=== PATIENT | female | born 1975 | race Hispanic/Latino ===

== ENCOUNTER 2019-05-09 15:55 | Inpatient (IN) | payer SELFPAY ==
[2019-05-09] MEDS ORDERED: Ibuprofen 200 MG TAB ONE (16:06)
--- NOTE | 2019-05-09 16:22 | RAD ---
Frontal and lateral imaging of the right tibia/fibula: 05/09/2019 COMPARISON: None HISTORY: Fall, trauma, pain FINDINGS: There is a comminuted obliquely oriented fracture of the distal right tibial shaft with cecelia roximately 6 mm of medial displacement and 6 mm of anterior displacement. There is a comminuted fracture with moderate displacement at the base of the fibular head as well. IMPRESSION: Fracture deformities of the proximal right fibula in the distal right tibia.
[2019-05-09] MEDS ORDERED: Morphine 4 MG/ML VIAL ONE (17:28)
[2019-05-09] MEDS ORDERED: Morphine 2 MG/ML SYRINGE ONE ×2 (17:29→17:42)
[2019-05-09 17:39] LABS: #Lymphocytes 1.3 thou/uL (1.20-3.40); #Monocytes 0.5 thou/uL (0.11-0.59); #Neutrophils 11.5 thou/uL (1.40-6.50); %Basophils 0.3 % (0.0-1.0); %Eosinophils 0.2 % (0.0-10.0); %Monocytes 3.5 % (0.0-10.0); Hemoglobin 14.9 g/dL (12.0-16.0); Mean Corpuscular HGB CONC 35.5 g/dL (32.0-36.0); Mean Corpuscular Hemoglobin 32.6 pg (27.0-31.0); Mean Corpuscular Volume 91.8 fL (78.0-98.0); Mean Platelet Volume 6.9 fL (7.4-10.4); Platelet Count 264 thou/uL (130-400); RBC Distribution Width 11.5 % (11.5-14.5); Red Blood Cell (RBC) Count 4.58 mill/uL (4.20-5.40); White Blood Cell (WBC) Count 13.3 thou/uL (4.8-10.8)
[2019-05-09] MEDS ORDERED: Promethazine HCl 25 MG/ML VIAL ONE (17:42)
[2019-05-09 18:01] LABS: ALT (SGPT) 36 U/L (8-55); AST (SGOT) 27 U/L (5-34); Albumin 4.6 g/dL (3.5-5.0); Alkaline Phosphatase 75 U/L (40-110); Anion Gap 14 mmol/L (10-20); BUN (Urea Nitrogen) 22 mg/dL (7.0-18.7); Bilirubin, Total 1.4 mg/dL (0.2-1.2); Calc. Creatinine Clearance 0 mL/min (70-130); Calcium 9.8 mg/dL (7.8-10.44); Carbon Dioxide 25 mmol/L (22-29); Chloride 104 mmol/L (98-107); Estimated GFR-MDRD 59; Globulin 3.7 g/dL (2.4-3.5); Glucose 121 mg/dL (70-105); Protein, Total 8.3 g/dL (6.0-8.3); Sodium 139 mmol/L (136-145)
[2019-05-09] MEDS ORDERED: Ondansetron PF 4 MG/2 ML Vial IVP PRN (18:48)
[2019-05-09] MEDS ORDERED: hydrALAZINE 20 MG/ML VIAL SLOW IVP PRN (18:48)
[2019-05-09] MEDS ORDERED: Dextrose 50% Abboject 50 ML SYRINGE SLOW IVP PRN (18:48)
[2019-05-09] MEDS ORDERED: Ondansetron ODT 4 MG TAB PO PRN (18:48)
[2019-05-09] MEDS ORDERED: Dextrose 5% in Water 1,000 ML IV PRN (18:48)
[2019-05-09] MEDS ORDERED: Morphine 2 MG/ML SYRINGE SLOW IVP PRN (18:48)
[2019-05-09] MEDS ORDERED: traMADol HCl 50 MG TAB PO PRN (18:52)
[2019-05-09] MEDS ORDERED: CEFAZOLIN 2 GM in Premix Bag 1 BAG IVPB SCH (20:15)
--- NOTE | 2019-05-09 20:28 | CON ---
DATE OF CONSULTATION: 05/09/2019 REQUESTING PHYSICIAN: Rickey Ruffin MD PRINCIPAL COMPLAINT: Left distal tibia and proximal fibula fracture. BRIEF HISTORY OF PRESENT ILLNESS: The patient is a 44-year-old lady, who reports that earlier this evening, she fell out of her attic landing approximately 8 feet below, sustaining trauma to the left lower leg. There was no loss of consciousness. She denies hitting her head. Upon arrival at [facility], her only complaint was that of left lower leg pain. Workup included x-rays that demonstrated a comminuted fracture of the distal tibial metaphysis starting at the metaphyseal diaphyseal junction and heading down into the joint surface in addition to a fibular head fracture. She was placed in a long-leg posterior fiberglass splint and is now being admitted to the Trauma Service. Orthopedic consultation requested. PAST MEDICAL HISTORY: Otherwise healthy. PAST SURGICAL HISTORY: section. MEDICATIONS: None. ALLERGIES: NONE. SOCIAL HISTORY: She denies alcohol, tobacco, or drugs. FAMILY HISTORY: Noncontributory. REVIEW OF SYSTEMS: Denies recent fevers, chills, or sweats. Denies chest pain or shortness of breath. Denies numbness or tingling in this left lower extremity. PHYSICAL EXAMINATION: VITAL SIGNS: Temperature 97.6, heart rate of 83, respiratory rate of 14, and blood pressure 120/61. HEENT: Atraumatic and normocephalic. HEART: Shows a regular rate and rhythm without murmur. LUNGS: Clear to auscultation bilaterally with good breath sounds. Chest wall is nontender. ABDOMEN: Round, but soft with normal bowel sounds. PELVIS: Stable. EXTREMITIES: Remarkable for bilateral upper extremities that are atraumatic. A right lower extremity also atraumatic. The left lower extremity is held in a long-leg posterior splint. She has no hip pain with logrolling of the leg. Prior to splinting, she had complaints of lateral knee pain with evidence of this fibular head fracture as well as ankle pain with any motion. In the splint, she is wiggling her toes normally. She has no pain with passive stretch. She has intact subjective sensation. DIAGNOSTIC DATA: Two view tib-fib remarkable for a comminuted distal tibial metaphyseal fracture as well as fibular head fracture. LABORATORY DATA: She was found to have a white count of 13, a hematocrit of 42.1, and 264,000 platelets. Her complete metabolic panel is roughly within normal limits with just a slightly elevated BUN and a slightly elevated resting glucose. ASSESSMENT: A 44-year-old lady, status post 8 feet fall sustaining isolated left distal tibia fracture with extension into the joint surface. PLAN: At this time, the patient is being admitted to the Trauma Service. We will make her n.p.o. after midnight with plans to proceed to the operating room tomorrow for open reduction and internal fixation. I would like to obtain a CT scan of the distal tibia for preoperative planning prior to surgery and this will be done before she leaves the emergency room. Today, I discussed with the patient risks and benefits of surgery. I believe all questions have been answered. Job ID: [id number]
--- NOTE | 2019-05-09 20:44 | CT ---
CT RIGHT LEG: CLINICAL HISTORY: Fall, injury. FINDINGS: Comminuted and displaced proximal fibular fracture is present with mild override of fracture fragment s. There is a comminuted distal diaphyseal tibial fracture extending to the articular surface of the tibiotalar articulation. Greatest intra-articular gap is located posteriorly, 4 mm AP. There is a ssociated soft tissue edema. IMPRESSION: 1. Comminuted intra-articular distal tibial fracture. 2. Comminuted proximal fibular fracture. Transcribed Date/Time: 05/09/2019 9:08 PM
--- NOTE | 2019-05-09 21:48 | HP ---
HISTORY OF PRESENT ILLNESS: This is a 44-year-old woman, who was in her attic when she fell through the sheet, rock landing onto a wood floor approximately 7-10 feet. The patient denies any loss of consciousness. The patient denies hitting her head. The patient reported immediate pain to her left lower extremity and soreness to her right shoulder, but did not land on her shoulder. States that she went to grab onto something when she was falling. The patient has good range of motion. No deformity noted to her right shoulder. The patient has a small contusion to her left elbow with good range of motion. The patient was evaluated in the emergency room and was found to have a left comminuted obliquely oriented fracture to the distal tibial shaft. There is also displacement of the base of the fibular head as well. A padded long-leg splint was applied in the emergency room. The patient did receive morphine for pain, also Motrin and Phenergan. REVIEW OF SYSTEMS: Negative unless otherwise stated in the above HPI. PAST MEDICAL HISTORY: Denies. PAST SURGICAL HISTORY: . SOCIAL HISTORY: Patient lays tilFatTail for living. Denies alcohol use, denies drug use, denies smoking history. ALLERGIES: DENIES ANY DRUG ALLERGIES. MEDICATIONS: None. PHYSICAL EXAMINATION: VITAL SIGNS: Blood pressure 120/61, pulse 83, respirations 14, temperature 97.6 , SpO2 of 99% on room air. GENERAL: Middle aged female, lying in hospital bed, in no acute distress. HEENT: Head is atraumatic and normocephalic, trachea is midline. No cervical tenderness, normal range of motion of neck. Pupils are equal and reactive. Mucous membranes are moist. RESPIRATORY: Equal chest rise and fall. No wheezing, rales, or rhonchi. Bilateral breath sounds clear. CARDIOVASCULAR: Regular rate, regular rhythm. No murmur. No pedal edema. ABDOMEN: Soft, nontender, nondistended. Obese. BACK: Normal inspection, normal range of motion. No tenderness. EXTREMITIES: Moves all extremities, contusion to the left elbow, normal range of motion, mild soreness to right shoulder, normal range of motion. No obvious deformity. Left lower extremity splinted, neurovascularly intact x4. NEUROLOGIC: No focal deficits. LABORATORY DATA: WBC 13.3, RBC 4.58, hemoglobin 14.9, hematocrit 42.1, platelets 264. Sodium 139, potassium 4.0, chloride 104, BUN 22, creatinine 0.01, estimated GFR 59, glucose 221, calcium 9.8, total bilirubin 1.4, AST 27, ALT 36, alkaline phos 75. DIAGNOSTIC DATA: Tibia fibula x-ray. Impression; fracture deformities of the proximal right fibula and distal right tibia. IMPRESSION: 1. Fall from attic approximately 8 to 10 feet. 2. Left comminuted fracture with moderate displacement to the left tib-fib. 3. Acute traumatic pain secondary to above. PLAN: We will admit the patient to the surgical floor. The patient will be n.p.o. after midnight with maintenance IV fluids. We will place the patient on a pain regimen. Orthopedic Surgery plans to take the patient to the OR for repair tomorrow. We will place PT/OT consult to evaluate and treat postop. Most likely, patient will be able to be discharged home if her pain is well controlled postop. The plan will be discussed with the attending after this dictation. Job ID: [id number] [facility]
[2019-05-09] MEDS: Ibuprofen 600 MG TAB PO SCH (22:16)
[2019-05-09] MEDS: Sodium Chloride 0.9% 1,000 ML IV SCH (22:16)
[2019-05-09] MEDS: Senokot S 8.6-50 MG TAB PO SCH (22:16)
[2019-05-09] MEDS: Acetaminophen 500 MG TAB PO SCH (22:17)
[2019-05-09 22:59] VITALS: BMI 43.5
[2019-05-10] MEDS: Sodium Chloride 0.9% 1,000 ML IV SCH ×3 (05:30→21:57)
[2019-05-10] MEDS: Acetaminophen 500 MG TAB PO SCH ×3 (05:30→22:13)
[2019-05-10] MEDS: traMADol HCl 50 MG TAB PO PRN ×2 (05:31→12:09)
[2019-05-10 05:47] LABS: #Lymphocytes 1.8 thou/uL (1.20-3.40); #Monocytes 0.5 thou/uL (0.11-0.59); #Neutrophils 4.1 thou/uL (1.40-6.50); %Basophils 0.2 % (0.0-1.0); %Eosinophils 0.7 % (0.0-10.0); %Lymphocytes 27.7 % (21.0-51.0); %Monocytes 7.7 % (0.0-10.0); %Neutrophils 63.7 % (42.0-75.0); Hemoglobin 12.2 g/dL (12.0-16.0); Mean Corpuscular HGB CONC 35.5 g/dL (32.0-36.0); Mean Corpuscular Hemoglobin 32.7 pg (27.0-31.0); Mean Corpuscular Volume 92.2 fL (78.0-98.0); Mean Platelet Volume 6.9 fL (7.4-10.4); Platelet Count 208 thou/uL (130-400); RBC Distribution Width 11.4 % (11.5-14.5); Red Blood Cell (RBC) Count 3.72 mill/uL (4.20-5.40); White Blood Cell (WBC) Count 6.5 thou/uL (4.8-10.8)
[2019-05-10 06:03] LABS: Anion Gap 12 mmol/L (10-20); BUN (Urea Nitrogen) 23 mg/dL (7.0-18.7); Calc. Creatinine Clearance 148 mL/min (70-130); Calcium 8.8 mg/dL (7.8-10.44); Carbon Dioxide 24 mmol/L (22-29); Chloride 107 mmol/L (98-107); Estimated GFR-MDRD 76; Glucose 111 mg/dL (70-105); Magnesium 1.9 mg/dL (1.6-2.6); Phosphorus 3.6 mg/dL (2.3-4.7); Sodium 139 mmol/L (136-145)
--- NOTE | 2019-05-10 07:57 | PRG ---
DATE OF SERVICE: 05/09/2019 SUBJECTIVE: The patient was seen this evening, lying in bed with no signs of acute distress. She reported her pain was well controlled and she had no concerns at the time of my evaluation. OBJECTIVE: VITAL SIGNS: Temperature 98.1, pulse 103, respirations 16, oxygen saturation 99% on room air, and blood pressure 111/72. GENERAL: Well-appearing middle-aged female, sitting up in bed with no signs of acute distress. PULMONARY: Equal chest rise and fall. Clear breath sounds bilaterally. No signs of acute respiratory distress. CARDIAC: Tachycardic but regular rhythm. GI: Abdomen is soft, nontender, nondistended. EXTREMITIES: 2+ pulses in all extremities. Gross motor and sensation are intact. Left lower extremity with splint that is in place, clean and dry. ASSESSMENT: 1. Status post mechanical fall from 8 to 10 feet. 2. Left-sided tib-fib fracture. PLAN: The patient will be n.p.o. at midnight with normal saline at 120 an hour. We will continue her current pain medications. She is going to the OR tomorrow with Orthopedic Surgery. She will likely be able to go home after that. Job ID: [id number]
[2019-05-10] MEDS: Ibuprofen 600 MG TAB PO SCH ×3 (08:10→21:57)
[2019-05-10] MEDS ORDERED: FLU VACC QS2019-20(6MOS UP)/PF 60 MCG/0.5 ML SYRINGE IM ONE (09:00)
[2019-05-10] MEDS: Polyethylene Glycol 3350 17 GM Packet PO SCH (13:40)
[2019-05-10] MEDS: Senokot S 8.6-50 MG TAB PO SCH ×2 (13:40→22:13)
--- NOTE | 2019-05-10 16:59 | PRG ---
DATE OF SERVICE: 05/10/2019 SUBJECTIVE: The patient is currently on the surgical floor. She is hospital day #2, status post a fall from ceiling height from an attic. The patient has sustained a left distal tibia and fibular fracture that she is planned for surgical intervention today by Orthopedics. She has been n.p.o. since midnight. Her pain is controlled. She is not worked with Therapy yet. OBJECTIVE: VITAL SIGNS: Temperature is 98.3, heart rate 79, blood pressure 113/76, respirations 16, and oxygen saturation 97% on room air. GENERAL: The patient is resting comfortably in bed. She is awake, alert, and oriented x3. Musa Coma Scale is 15. HEENT: Unremarkable. LUNGS: Clear to auscultation with good inspiratory and expiratory effort. HEART: Regular rate and rhythm. ABDOMEN: Soft, flat, and nontender with active bowel sounds. EXTREMITIES: Neurovascularly intact x4. LABORATORY FINDINGS: White blood cell count 6.5, hemoglobin 12.2, hematocrit 34.3, and platelets 208. Sodium 139, potassium 4.0, chloride 107, CO2 of 24, BUN 23, creatinine 0.81, glucose 115, magnesium 1.9, and phosphorus 3.6. There are no radiographs reviewed this morning. ASSESSMENT: 1. Status post fall from approximately 8 to 10 feet. 2. Left tibia fibula fracture, awaiting open reduction and internal fixation. 3. Acute pain secondary to above, stable. PLAN: Plan will be to have her start work with therapy postoperatively, physical and occupational therapy and discuss placement with her. Initially, the patient states that she would like to go home, but we will wait till she works with therapy postop. Job ID: [id number]
[2019-05-10] MEDS ORDERED: HYDROmorphone 0.5 MG/0.5 ML SYRINGE ONE (18:01)
[2019-05-10] MEDS ORDERED: Midazolam HCl 2 mg/2 ml Vial ONE (18:01)
[2019-05-10] MEDS ORDERED: Fentanyl 100 MCG/2 ML VIAL ONE ×3 (18:01→20:36)
--- NOTE | 2019-05-10 20:13 | RAD ---
Left ankle 2 view INDICATION: ORIF, right ankle LUNGS: Plate and screw fixation of distal tibia traversing fracture site with near anatomic alignment demonstrated on the provided views. IMPRESSION: Intraoperative imaging for ORIF of distal left tibia.
[2019-05-11] MEDS: traMADol HCl 50 MG TAB PO PRN ×2 (00:34→14:43)
[2019-05-11] MEDS: Acetaminophen 500 MG TAB PO SCH ×5 (00:34→23:21)
[2019-05-11] MEDS: CEFAZOLIN 2 GM in Premix Bag 1 BAG IVPB SCH ×3 (01:54→17:25)
[2019-05-11 05:22] LABS: #Lymphocytes 0.8 thou/uL (1.20-3.40); #Monocytes 0.2 thou/uL (0.11-0.59); %Eosinophils 0.1 % (0.0-10.0); %Lymphocytes 11.5 % (21.0-51.0); %Monocytes 3.3 % (0.0-10.0); %Neutrophils 85.2 % (42.0-75.0); Hemoglobin 11.1 g/dL (12.0-16.0); Mean Corpuscular HGB CONC 35.7 g/dL (32.0-36.0); Mean Corpuscular Volume 92.4 fL (78.0-98.0); Mean Platelet Volume 6.8 fL (7.4-10.4); Platelet Count 205 thou/uL (130-400); RBC Distribution Width 11.2 % (11.5-14.5); Red Blood Cell (RBC) Count 3.34 mill/uL (4.20-5.40); White Blood Cell (WBC) Count 7.1 thou/uL (4.8-10.8)
[2019-05-11] MEDS: Ibuprofen 600 MG TAB PO SCH ×3 (05:43→21:12)
[2019-05-11] MEDS: Sodium Chloride 0.9% 1,000 ML IV SCH (05:44)
--- NOTE | 2019-05-11 07:28 | PRG ---
DATE OF SERVICE: 05/11/2019 SUBJECTIVE: Ms. Ortiz is a 44-year-old status post fall from a ceiling. She sustained a left tib-fib fracture. She underwent ORIF of left tib-fib fracture yesterday last night. Later tonight postop, the patient reports pain is most well controlled, this was after taking p.o. medication and IV morphine. Her pain is much better. She is able to sleep well. She tolerated with her regular diet. She will be working with PT and OT tomorrow. OBJECTIVE: GENERAL: The patient is lying in bed comfortable with no acute distress. VITAL SIGNS: Stable. LUNGS: Clear bilaterally. HEART: Regular rate and rhythm. EXTREMITIES: Neurovascularly intact x4. ASSESSMENT: 1. Status post fall from 8 to 10 feet. 2. Left tib-fib fracture status post open reduction and internal fixation, left tibiofibular fracture, postoperative day zero. PLAN: Will be to continue supportive care, pain control. Continue DVT prophylaxis. Will be working with PT and OT tomorrow. Job ID: [id number]
[2019-05-11] MEDS: Ascorbic Acid 500 mg Chewable Tablet PO SCH (08:27)
[2019-05-11] MEDS: Senokot S 8.6-50 MG TAB PO SCH ×2 (08:28→20:16)
[2019-05-11] MEDS: Enoxaparin Sodium 30 MG/0.3 ML SYRINGE SC SCH ×2 (08:29→20:16)
[2019-05-11] MEDS: Ferrous Sulfate 325 MG TAB PO SCH (08:29)
[2019-05-11] MEDS: Polyethylene Glycol 3350 17 GM Packet PO SCH (08:29)
--- NOTE | 2019-05-11 10:25 | PRG ---
DATE OF SERVICE: 05/11/2019 SUBJECTIVE: The patient was seen and examined this morning on rounds. The patient is doing well. She is now postop day #1 status post open reduction and internal fixation of left distal tib-fib fracture. She tolerated the procedure well. She states that her pain is well controlled with p.o. pain medications. She is tolerating p.o. well without any significant nausea or vomiting. Denies any fevers, chills, chest pain, or shortness of breath. She is voiding without difficulty. She will begin to work with PT and OT today for further evaluation, management, recommendations. OBJECTIVE: VITAL SIGNS: Temperature 98.2, heart rate 66, respiratory rate 14, O2 saturations 96% on room air, blood pressure 102/68. GENERAL: Well-appearing, middle-aged female, resting comfortably in bed. No signs of acute distress, in good spirits. HEENT: Extraocular movements are intact. Trachea midline. NECK: Supple. RESPIRATIONS: Symmetric and equal chest rise and fall. No signs of acute respiratory distress or increased work of breathing. EXTREMITIES: Neurovascularly intact x4. LABORATORY FINDINGS: Hemoglobin 11.1, down from 14.9 on admission; white blood cell count 7.1; platelets 205. ASSESSMENT: 1. Status post fall from approximately 8 to 10 feet. 2. Left tib-fib fracture, status post open reduction and internal fixation, postop day #1. 3. Acute pain secondary to the above. PLAN: We will continue supportive care. The patient tolerated procedure well. We will continue on pain medication regimen and bowel regimen. On Lovenox for VTE prophylaxis. Started on iron and vitamin C for acute blood-loss anemia. We will have PT and OT evaluate the patient today and begin therapy for recommendation for home discharge with outpatient rehab versus inpatient rehab, pending eval. Appreciate case management assistance. We will discontinue IV fluids. We will continue to monitor clinical course and anticipate appropriate discharge planning. The patient was seen and examined by Dr. Hylton on morning rounds. Above plan discussed with the patient and family at bedside, who voiced agreement and understanding of the current plan. All questions were answered appropriately. Job ID: [id number] [facility]
--- NOTE | 2019-05-11 18:25 | OP ---
DATE OF PROCEDURE: 05/10/2019 PREOPERATIVE DIAGNOSES: 1. Left intra-articular distal tibia fracture (pilon fracture). 2. Left fibular head fracture. POSTOPERATIVE DIAGNOSES: 1. Left intra-articular distal tibia fracture (pilon fracture). 2. Left fibular head fracture. PROCEDURES PERFORMED: 1. Open reduction and internal fixation of left intra-articular distal tibia fracture. 2. Closed treatment of left proximal fibula fracture. ANESTHESIA: General. SUPERVISOR FORCE ADJUSTMENT: Mary Chiu PA-C TOURNIQUET TIME: Approximately 1-1/2 hours at 300 mmHg. IMPLANTS: Synthes 2.7/3.5 mm variable angle LCP anterolateral distal tibial plate, 10 hole. COMPLICATIONS: None. DRAINS: None. SPECIMEN: None. OUTCOME: Near-anatomic alignment. INDICATIONS: The patient is a pleasant 44-year-old lady status post fall from a height of approximately 8 feet, sustaining an intra-articular and displaced left distal tibia fracture with a fibular head fracture. The patient is now scheduled for surgical intervention. I have discussed with the patient risks and benefits of the procedure. Risks include, but are not limited to bleeding, infection, nerve injury, DVT, PE, loss of limb or life, ankle stiffness, hardware failure. The patient appears to understand and does wish to proceed. Informed consent has been obtained. DESCRIPTION OF PROCEDURE: The patient was brought to the operating room and a time-out performed followed by induction of general anesthesia. Next, she was positioned supine on the OR table and a sterile prep and drape was performed of the left lower extremity. The limb was then exsanguinated with Esmarch bandage, tourniquet inflated to 300 mmHg. Next, a standard anterior approach was made to the distal tibia. Incision was carried along the path of the tibialis anterior, extending from approximately mid tibia down to the ankle. Once the skin was sharply incised, dissection was carried down to the underlying fascia covering the anterior compartment. This was incised in line with skin incision and then the tibialis anterior muscle was reflected off the anterior lateral cortex of the tibia proximally. Down at the ankle, the tibialis tendon and neurovascular bundle were swept laterally to obtain a window, where the horizontal limb of the plate could be applied. Once the dissection was complete, a 10 hole plate was passed into the wound and the fracture was essentially reduced to this plate using a combination of K-wires and clamps. Once near anatomic reduction was achieved, an initial metaphyseal screw was placed in the horizontal limb of the plate, getting compression and zoroastrian of the joint surface of the distal tibia, 2 cortical screws were then placed proximal to the fracture. Next, a number of Interfragmentary compression screws were applied through the plate across the major fracture lines in the midportion of the fracture. This was then followed by application of multiple locking screws in the distal tibial metaphysis. With completion of this, there was anatomic zoroastrian of the tibia and joint surface. The wound was then thoroughly irrigated with normal saline. The fascia could not be reapproximated due to swelling in the leg, but the skin was able to be reapproximated without excessive tension on the skin. This using a combination of 0 Vicryl for the deep fat layer followed by 2-0 Vicryl and then young for the skin. Xeroform gauze and a Webril fiberglass splint were applied to the leg and then the patient was transferred to recovery room in stable condition. There were no complications. She tolerated the procedure well. Tourniquet was let down to completion of dressing and the left fibular head is being treated nonsurgically. Job ID: [id number]
--- NOTE | 2019-05-11 23:56 | PRG ---
DATE OF SERVICE: 05/11/2019 SUBJECTIVE: Ms. Ortiz is a 44-year-old female, status post fall from a height of 8-10 feet. She sustained left tib-fib fracture. She underwent ORIF of left tib-fib fracture. Postop day 1, the patient reports doing good. Pain is well controlled. She is able to work with PT/OT today. She walks around the floor. OBJECTIVE: GENERAL: The patient is lying down in bed comfortable with no acute distress. VITAL SIGNS: Stable. LUNGS: Clear bilaterally. HEART: Regular rate and rhythm. EXTREMITIES: Left lower extremity is clean. Postop dressing clean, dry, and intact. PLAN: Continue supportive care. Pain control. Continue DVT prophylaxis. The patient will be working with PT/OT and anticipate discharge home with outpatient physical therapy. Job ID: [id number]
[2019-05-12] MEDS: Acetaminophen 500 MG TAB PO SCH ×2 (05:41→11:24)
[2019-05-12] MEDS: Ibuprofen 600 MG TAB PO SCH (05:41)
[2019-05-12 06:32] LABS: Hemoglobin 10.3 g/dL (12.0-16.0); Mean Corpuscular Hemoglobin 32.6 pg (27.0-31.0); Mean Corpuscular Volume 98.7 fL (78.0-98.0); Mean Platelet Volume 6.9 fL (7.4-10.4); Platelet Count 178 thou/uL (130-400); RBC Distribution Width 11.6 % (11.5-14.5); Red Blood Cell (RBC) Count 3.15 mill/uL (4.20-5.40); White Blood Cell (WBC) Count 5.5 thou/uL (4.8-10.8)
[2019-05-12 07:44] LABS: Band 2 % (5-11); Eosinophils 1 % (0-10); Lymphocytes 39 % (21-51); MDiff Complete? YES; Monocytes 7 % (0-10); Neutrophil 50 % (42-75); Platelet Morphology Comment Appears Adequate; Polychromasia SLIGHT = 2-3 cells (100X) (0-2/hpf); Reactive Lymphocytes 1 % (0-10)
[2019-05-12] MEDS: Senokot S 8.6-50 MG TAB PO SCH (08:38)
[2019-05-12] MEDS: Ascorbic Acid 500 mg Chewable Tablet PO SCH (08:39)
[2019-05-12] MEDS: Enoxaparin Sodium 30 MG/0.3 ML SYRINGE SC SCH (08:39)
[2019-05-12] MEDS: Ferrous Sulfate 325 MG TAB PO SCH (08:39)
[2019-05-12] MEDS: Polyethylene Glycol 3350 17 GM Packet PO SCH (08:42)
[2019-05-12 08:45] VITALS: BP 102/71; TEMP 98.8
--- NOTE | 2019-05-12 10:48 | DIS ---
DATE OF ADMISSION: 05/09/2019 DATE OF DISCHARGE: 05/12/2019 ATTENDING: Hansel Hylton DO. CONSULTS: Eduin Cruz MD, Orthopedic Surgery. PROCEDURES: 1. Open reduction internal fixation of left intra-articular distal tibia fracture and closed treatment of left proximal fibular fracture. 2. Left tib-fib x-ray on 05/09/2019, demonstrating fracture deformities of the proximal right fibula and the distal right tibia. 3. Left lower extremity CT demonstrating comminuted intra-articular distal tibia fracture and comminuted proximal fibular fracture. PRIMARY DIAGNOSES: 1. Status post fall from approximately 8-10 feet. 2. Left tib-fib fracture, status post open reduction, internal fixation, postop day #2. SECONDARY DIAGNOSES: None. DISCHARGE MEDICATIONS: 1. Ibuprofen 600 mg p.o. q.6 hours p.r.n. 2. Tramadol 50 mg p.o. q.6 hours p.r.n. DISCONTINUED MEDICATIONS: None. HISTORY OF PRESENT ILLNESS AND HOSPITAL COURSE: The patient is a 44-year-old female with no significant past medical history who was in her attic when she fell through the [facility], landing on the wood floor approximately 7-10 feet. She denied any loss of consciousness. Denied hitting her head, but had immediate pain to her left lower extremity and soreness to her right shoulder. The patient had good range of motion and no deformity noted of her right shoulder. She has a small contusion on the left elbow with good range of motion, The patient was evaluated in the emergency department and was found to have a left comminuted obliquely oriented fracture in the distal tibial shaft and displacement of the base of the fibular head. A padded long-leg splint was applied in the emergency room and the patient received morphine and Motrin and Phenergan for the pain and nausea. The patient was then admitted for further evaluation, management and operative repair of her injuries. The patient was made n.p.o. at midnight, started on maintenance IV fluids, given adequate pain control for repair on hospital day one. On hospital day one, patient was taken to the OR in stable condition and an open reduction, internal fixation of her left tib-fib fracture was performed. The patient tolerated the procedure well and was transferred back to floor in stable condition. Postoperatively, patient stated her pain was well controlled with p.o. pain medications. She was tolerating p.o. well without any significant nausea or vomiting. She denies any fevers, chills, chest pain, shortness of breath. She was voiding without difficulty and having multiple bowel movements. She was able to ambulate over 40 feet with physical therapy. Her labs and vital signs remained stable. Physical Therapy recommended discharge home with continued outpatient physical therapy. On postop day two, the patient was seen and examined by Dr. Hylton on morning rounds and was sitting upright in bed, eating breakfast, ambulating with physical therapy earlier in the morning. Tolerating p.o. well, voiding and stooling without difficulty. Stated that her pain was well controlled and she was eager for discharge to home. Discharge plan was discussed with patient at bedside including need to follow up with her primary care physician and Dr. Cruz as well as her orthopedic limitations of nonweightbearing to her left lower extremity and the need to continue with outpatient physical therapy. Return precautions were given. The patient voiced agreement and understanding of discharge plan and was eager to be discharged home. All questions were answered. DISPOSITION: Stable. DISCHARGE INSTRUCTIONS: LOCATION: Home. DIET: Regular. ACTIVITY: Orthopedic limitations, nonweightbearing to left lower extremity. FOLLOWUP: The patient to follow up with Dr. Cruz in 14 days as well as her primary care physician within 7 days of discharge. Job ID: [id number] [facility]
--- NOTE | 2019-05-13 06:40 | PQF ---
[employer] REBEKAH Mayfield KATHY RODRIGUEZ [id number] CLINICAL DOCUMENTATION CLARIFICATION FORM: POST DISCHARGE Addendum to original discharge summary date: ____ Late entry note date: __ DATE: 05/13/2019 ATTN: KATHY RODRIGUEZ Please exercise your independent, professional judgment in responding to the clarification form. Clinical indicators are provided on the bottom of this form for your review Please check appropriate box(s): X ] Obesity [ ] Over weight [ ] Abnormal weight gain [ ] Other diagnosis [ ] Unable to determine For continuity of documentation, please document condition throughout progress notes and discharge summary. Thank You. CLINICAL INDICATORS - SIGNS / SYMPTOMS / LABS -BMI: 43.5- FNS assessment- 05/09 -Height: 1.57m-FNS assessment- 05/09 -current weight: 107.955kg-FNS assessment- 05/09 -Abdomen: obese--H&P, 05/09, Álvaro Jaramillo RISK FACTORS -Age:44yrs-H&P, 05/09, Ponlinden Ella -Left comminuted fracture with moderate displacement to the left tib-fib--H&P, 05/09, Álvaro Jaramillo TREATMENTS: -Ambulating and physical therapy- DS, 05/12, KATHY RODRIGUEZ -orthopedic limitations of nonweightbearing to her left lower extremity-DS, , KATHY RODRIGUEZ (This form is maintained as a part of the permanent medical record) 2014 [employer]. All Rights Reserved Juanita Jenkins [not provided] [not provided] MTDD
== END 2019-05-12 12:48 | disposition home or self-care (01) | DRG 493 ==
LOC: ERS 15:55 → SURG B 17:20
PROVIDERS: ADMIT Specialist; ATTEND Specialist
PROC: 0QSG04Z Reposition Right Tibia with Internal Fixation Device, Open Approach (ICD-10-PCS; principal; 2019-05-10)
PROC: 0QSJ34Z Reposition Right Fibula with Internal Fixation Device, Percutaneous Approach (ICD-10-PCS; 2019-05-10)
DX: S82.392A Other fracture of lower end of left tibia, initial encounter for closed fracture (principal); Z68.41 Body mass index [BMI] 40.0-44.9, adult; S82.492A Other fracture of shaft of left fibula, initial encounter for closed fracture; S50.02XA Contusion of left elbow, initial encounter; W13.3XXA Fall through floor, initial encounter; E66.9 Obesity, unspecified; Y92.098 Other place in other non-institutional residence as the place of occurrence of the external cause
CPT/HCPCS: 36415; 76000; 80048; 80053; 83735; 84100; 85025; 96361; 96365; 96375; C1713; J0690; J1170; J1650; J2250; J2270; J2550; J3010

== ENCOUNTER 2023-04-03 13:44 | Outpatient (CLI) | payer OTHER | END 2023-04-03 13:45 | disposition home or self-care (01) | LOC: BICULT 13:44 → EDSTATUS 14:15 | PROVIDERS: ATTEND Nurse Practitioner Women's Health | DX: R59.0 Localized enlarged lymph nodes (principal) | CPT/HCPCS: 76536 ==

== ENCOUNTER 2023-04-28 12:55 | Outpatient (CLI) | payer OTHER ==
[2023-04-28] MEDS ORDERED: Iopamidol 370 76% 100 ML VIAL ONE (15:28)
== END 2023-04-28 12:56 | disposition home or self-care (01) ==
LOC: BICCT 12:55 → EDSTATUS 13:30
PROVIDERS: ATTEND Nurse Practitioner Women's Health
DX: R59.0 Localized enlarged lymph nodes (principal)
CPT/HCPCS: 70491; Q9967